=== PATIENT | female | born 1990 | race African-American/Black ===

== ENCOUNTER 2024-07-05 01:30 | Emergency (ER) | payer BC ==
[~2024-07-05] VITALS: Ht 167.6 cm; Wt 87.0 kg
[2024-07-05 01:36] VITALS: O2SAT 100
[2024-07-05 01:39] VITALS: BP 143/83; PULSE 94; RESP 16; TEMP 37; O2SAT 96
[2024-07-05 02:34] LABS: CLARITY URINE CLEAR (CLEAR); COLOR URINE YELLOW (YELLOW); GLUCOSE URINE NEGATIVE (NEGATIVE); KETONES URINE NEGATIVE (NEGATIVE); LEUKOCYTE ESTERASE URINE NEGATIVE (NEGATIVE); NITRITE URINE NEGATIVE (NEGATIVE); OCCULT BLOOD URINE NEGATIVE (NEGATIVE); PH URINE 6.5 (4.5-8.0); PROTEIN URINE NEGATIVE (NEGATIVE); SPECIFIC GRAVITY URINE 1.004 (1.005-1.030); UROBILINOGEN URINE 0.2 E.U./dL (0.2-1.0)
== END 2024-07-05 04:09 | disposition left against medical advice (07) ==
LOC: ER 02:30
DX: R10.30 Lower abdominal pain, unspecified (principal); I10 Essential (primary) hypertension; Z53.21 Procedure and treatment not carried out due to patient leaving prior to being seen by health care provider
CPT/HCPCS: 81003; 81025